=== PATIENT | male | born 1945 | race Two or more races ===

== ENCOUNTER 2024-11-10 19:16 | Emergency (ER) | payer OTHER ==
[~2024-11-10] VITALS: Ht 170.2 cm; Wt 74.4 kg
[2024-11-10] MEDS ORDERED: LEVOTHYROXINE25 MCG (20:12)
[2024-11-10] MEDS ORDERED: TOPROL XL25 M1 (20:13)
[2024-11-10] MEDS ORDERED: CLONAZEPAM0.5 M1 (20:13)
[2024-11-10] MEDS ORDERED: COZAAR25 MG (20:13)
[2024-11-10] MEDS ORDERED: ATORVASTATIN CA10 MG (20:14)
[2024-11-10] MEDS ORDERED: XARELTO1 MG/1 ML (20:14)
[2024-11-10] MEDS ORDERED: TAMS0.4C (20:15)
[2024-11-10] MEDS ORDERED: KETOROLAC TROMETHAMINE 60 MG VIAL IM ONE (21:05)
[2024-11-10] MEDS ORDERED: KETOROLAC TROMETHAMINE 60 MG VIAL IM STA (21:06)
== END 2024-11-10 21:34 | disposition home or self-care (01) ==
LOC: ER 19:39
DX: R33.8 Other retention of urine (principal); E78.00 Pure hypercholesterolemia, unspecified; E03.8 Other specified hypothyroidism; I10 Essential (primary) hypertension
CPT/HCPCS: 51702; 96372; 99282; J1885

== ENCOUNTER 2024-12-30 17:50 | Emergency (ER) | payer OTHER ==
[~2024-12-30] VITALS: Ht 170.2 cm; Wt 75.7 kg
[~2024-12-30 17:50] MED LIST: ATORVASTATIN CA10 MG; CLONAZEPAM0.5 M1; COZAAR25 MG; LEVOTHYROXINE25 MCG; TAMS0.4C; TOPROL XL25 M1; XARELTO1 MG/1 ML
[2024-12-30] MEDS ORDERED: CEFTRIAXONE SODIUM 2,000 MG VIAL IV ONE (18:30)
[2024-12-30 18:59] LABS: BASO % 1.1 % (0.1-1.2); EOS # 0.38 (0.04-0.54); EOS % 4.2 % (0.7-7.0); LYMPH # 1.87 (1.18-3.74); LYMPH % 20.6 % (19.3-53.1); MEAN PLATELET VOLUME 11.00 fl (9.4-12.4); MONO # 0.86 (0.24-0.82); MONO % 9.5 % (4.7-12.5); NEUT # 5.83 (1.56-6.13); NEUT % 64.4 % (34.0-71.1); RED CELL DISTRIBUTION WIDTH 13.7 % (11.6-14.4)
[2024-12-30 19:22] LABS: ALT/SGPT 30.0 U/L (12-78); AST/SGOT 24.0 U/L (15-37); BILIRUBIN TOTAL 0.55 mg/dL (0.3-1.2); BUN CREA RATIO 17.0 (7.0-25.0); CREATININE SERUM 1.14 mg/dL (0.70-1.30); GFR 61.65; GLOBULINA 3.7 G/DL (2.4-3.5); GLUCOSE FASTING 100.0 mg/dL (65-100); OSMOLALITY SERUM 289.0 MOSM/KG (275-295)
[2024-12-30 19:28] LABS: URINE APPEARANCE Cloudy; URINE BILIRRUBIN Negative (NEGATIVE); URINE BLOOD Large; URINE COLOR Yellow; URINE GLUCOSE Negative (NEGATIVE); URINE KETONE Negative (NEGATIVE); URINE LEUKOCYTE Large; URINE NITRATE Positive; URINE UROBILINOGEN 0.2 E.U./dl
[2024-12-30 20:04] LABS: URINE BACTERIA 2635.1 uL (0.0-1933); URINE CAST 1.61 uL (0.0-1.40); URINE EPITHELIAL CELLS 3.9 uL (0.0-38.8); URINE RBC 938.3 uL (0.0-20.8); URINE WBC 1250.4 uL (0.0-23.2)
[2024-12-30 20:13] LABS: URINE PROTEIN 100 (NEGATIVE)
[2024-12-30 20:14] LABS: URINE YEAST MODERATE /hpf
[2024-12-30] MEDS ORDERED: CEPHALEXIN500 M1 PO (20:16)
== END 2024-12-30 20:41 | disposition home or self-care (01) ==
LOC: ER 18:29
PROVIDERS: General Practice
DX: T83.018A Breakdown (mechanical) of other urinary catheter, initial encounter (principal); Y92.89 Other specified places as the place of occurrence of the external cause; I10 Essential (primary) hypertension